=== PATIENT | female | born 2000 | race Caucasian/White ===

== ENCOUNTER 2021-09-18 07:10 | Emergency (ER) | payer OTHER ==
[~2021-09-18] VITALS: Ht 167.7 cm; Wt 70.7 kg
[2021-09-18] MEDS ORDERED: ONDANSETRON 4 MG/2 ML (SDV) Z0FRAN IVP ONE (08:00)
[2021-09-18] MEDS ORDERED: NS IV 1000 ML 1,000 ML IV SCH (08:00)
[2021-09-18] MEDS ORDERED: KETOROLAC 30 MG/ML VIAL IVP ONE (08:00)
--- NOTE | 2021-09-18 08:02 | ED General ---
General Chief Complaint: - Reproductive Stated Complaint: BACK PAIN / FEVER Nursing Triage Note: PT AMB TO [facility] WITH COMPLAINT OF FEVERS, BACK PAIN. STATES SYMPTOMS STARTED THURSDAY. WENT TO [facility] YESTERDAY AND PRESCRIBED ANTIBIOTICS. UNSURE WHAT SHE WAS PRESCRIBED. STATES IS STILL HAVING FEVERS AND PAIN. LAST TOOK IBUPROFEN 0100 AND TYLENOL 0400. Source of Information: Patient Exam Limitations: No Limitations History of Present Illness Date Seen by Provider: Sep 18, 2021 Time Seen by Provider: 07:48 Initial Comments Patient is a 21-year-old female who presents to the emergency department with complaints of fever as high as 103, back pain more right than left, some burning with urination. Patient states that she is generally felt unwell. She is also had nausea and vomiting, inability to hold anything down. She works at [employer] and actually saw one of the providers "flaco". She had a urinalysis performed and was prescribed some antibiotics but had not started them yet. Patient denies upper respiratory complaints is not short of breath does not have a sore throat. She has an IUD. Denies abnormal vaginal bleeding or vaginal discharge. No diarrhea. No rashes, joint pain or swelling. She did take a dose of extra strength Tylenol x2 tablets at 4 AM and took ibuprofen at 1 AM. Still nauseous. Heart rate in the 120s. Looks dehydrated. Looks like she feels poorly. All other review of systems reviewed and negative except as stated Timing/Duration: 3-4 Days, 1 Week Severity: Moderate Associated Systoms: Fever/Chills, Nausea/Vomiting, Other (dysuria back pain) Allergies and Home Medications Allergies Coded Allergies: No Known Drug Allergies (Unverified , 09/18/21) Patient Home Medication List Home Medication List Reviewed: Yes Cephalexin (Cephalexin) 500 Mg Tablet, 500 MG PO TID Prescribed by: BENOIT SESAY on 09/18/21906 Ondansetron (Ondansetron Odt) 4 Mg Tab.rapdis, 4 MG PO Q8H PRN for nausea Prescribed by: BENOIT SESAY on 09/18/21906 Review of Systems Review of Systems Constitutional: chills, diaphoresis, fever, malaise, weakness EENTM: no symptoms reported Respiratory: no symptoms reported Cardiovascular: no symptoms reported Musculoskeletal: back pain (Right flank) Skin: no symptoms reported Psychiatric/Neurological: No Symptoms Reported All Other Systems Reviewed Negative Unless Noted: Yes Past Guauvaf-Nlwhlp-Jsnhfc Hx Patient Social History Tobacco Use?: No Use of E-Cig and/or Vaping dev: No Substance use?: No Alcohol Use?: Yes Alcohol Frequency: Once in a while Immunizations Up To Date First/Initial COVID19 Vaccinat: 2020 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 oz. kg; 25.00 BMI Method: General Appearance: No Apparent Distress, WD/WN Eyes: Bilateral Eye Normal Inspection, Bilateral Eye PERRL, Bilateral Eye EOMI HEENT: PERRL/EOMI, Other (Dry oral mucosa) Neck: Full Range of Motion, Normal Inspection, Non Tender, Supple Respiratory: Lungs Clear, Normal Breath Sounds, No Accessory Muscle Use, No Respiratory Distress Cardiovascular: Regular Rate, Rhythm (130 pulse), Normal Peripheral Pulses Gastrointestinal: Normal Bowel Sounds, Soft, Tenderness (Suprapubic tenderness) Genital/Rectal: Other (deferred) Back: CVA Tenderness (R) Extremity: Normal Inspection, Normal Range of Motion, Non Tender, No Calf Tenderness Neurologic/Psychiatric: Alert, Oriented x3, No Motor/Sensory Deficits, Normal Mood/Affect, men's basketball coach II-XII Norm as Tested Skin: Normal Color, Warm/Dry Progress/Results/Core Measures Suspected Sepsis SIRS Temperature: Pulse: 137 Respiratory Rate: 20 Laboratory Tests 09/18/21 08:13: White Blood Count 10.9 Blood Pressure 134 /74 Mean: 94 Laboratory Tests 09/18/21 08:13: Creatinine 0.86, Platelet Count 270 Results/Orders Lab Results Laboratory Tests Test 09/18/21 07:26 09/18/21 08:13 Range/Units Urine Color YELLOW Urine Clarity CLEAR Urine pH 5.5 5-9 Urine Specific [place] 1.025 H 1.016-1.022 Urine Protein 1+ H NEGATIVE Urine Glucose (UA) NEGATIVE NEGATIVE Urine Ketones NEGATIVE NEGATIVE Urine Nitrite POSITIVE H NEGATIVE Urine Bilirubin NEGATIVE NEGATIVE Urine Urobilinogen 1.0 < = 1.0 MG/DL Urine Leukocyte Esterase 1+ H NEGATIVE Urine RBC (Auto) 1+ H NEGATIVE Urine RBC RARE /HPF Urine WBC 25-50 H /HPF Urine Squamous Epithelial Cells 2-5 /HPF Urine Crystals NONE /LPF Urine Bacteria LARGE H /HPF Urine Casts NONE /LPF Urine Mucus NEGATIVE /LPF Urine Culture Indicated YES White Blood Count 10.9 4.3-11.0 10^3/uL Red Blood Count 4.43 3.80-5.11 10^6/uL Hemoglobin 12.1 11.5-16.0 g/dL Hematocrit 37 35-52 % Mean Corpuscular Volume 83 80-99 fL Mean Corpuscular Hemoglobin 27 25-34 pg Mean Corpuscular Hemoglobin Concent 33 32-36 g/dL Red Cell Distribution Width 13.5 10.0-14.5 % Platelet Count 270 130-400 10^3/uL Mean Platelet Volume 9.4 9.0-12.2 fL Immature Granulocyte % (Auto) 1 % Neutrophils (%) (Auto) 75 42-75 % Lymphocytes (%) (Auto) 9 L 12-44 % Monocytes (%) (Auto) 15 H 0-12 % Eosinophils (%) (Auto) 0 0-10 % Basophils (%) (Auto) 0 0-10 % Neutrophils # (Auto) 8.2 H 1.8-7.8 10^3/uL Lymphocytes # (Auto) 1.0 1.0-4.0 10^3/uL Monocytes # (Auto) 1.6 H 0.0-1.0 10^3/uL Eosinophils # (Auto) 0.0 0.0-0.3 10^3/uL Basophils # (Auto) 0.0 0.0-0.1 10^3/uL Immature Granulocyte # (Auto) 0.1 0.0-0.1 10^3/uL Sodium Level 135 135-145 MMOL/L Potassium Level 3.5 L 3.6-5.0 MMOL/L Chloride Level 100 98-107 MMOL/L Carbon Dioxide Level 21 21-32 MMOL/L Anion Gap 14 5-14 MMOL/L Blood Urea Nitrogen 6 L 7-18 MG/DL Creatinine 0.86 0.60-1.30 MG/DL Estimat Glomerular Filtration Rate 97 BUN/Creatinine Ratio 7 Glucose Level 103 70-105 MG/DL Calcium Level 9.0 8.5-10.1 MG/DL Influenza Type A Antigen NEGATIVE NEGATIVE Influenza Type B Antigen POSITIVE H NEGATIVE My Orders Orders - BENOIT SESAY MD Ed Iv/Invasive Line Start (09/18/21 07:56) Cbc With Automated Diff (09/18/21 07:56) Basic Metabolic Panel (09/18/21 07:56) Ua Culture If Indicated (09/18/21 07:56) Urine Bedside (09/18/21 07:56) Ns Iv 1000 Ml (Sodium Chloride 0.9%) (09/18/21 08:00) Ketorolac Injection (Toradol Injection) (09/18/21 08:00) Ondansetron Injection (Zofran Injectio (09/18/21 08:00) Influenza A & B Antigens (09/18/21 08:13) Urine Culture (09/18/21 07:26) Medications Given in ED Current Medications Medications Dose Ordered Sig/Blair Route Start Time Stop Time Status Last Admin Dose Admin Ketorolac Tromethamine 15 mg ONCE ONCE IVP 09/18/21 08:00 09/18/21 08:01 DC 09/18/21 08:06 15 MG Ondansetron HCl 4 mg ONCE ONCE IVP 09/18/21 08:00 09/18/21 08:01 DC 09/18/21 08:06 4 MG Vital Signs/I&O 09/18/21 07:20 Temp 39.5 Pulse 137 Resp 20 B/P (MAP) 134/74 (94) Pulse Ox 98 O2 Delivery Room Air Capillary Refill : Less Than 3 Seconds Blood Pressure Mean: 94 Progress Note : Time: 09:04 Progress Note Patient reevaluated after fluids, feeling better as far as more "clear headed". She still has a mild headache but declines further headache medications. She has influenza B as well as urinary tract infection. Request that her medications be sent to apothecary. I am going to put her on Keflex for her urinary tract infection and send some Zofran to the pharmacy for her nausea. She is counseled on return precautions. She verbalized understanding. All questions are sought and answered. Departure Impression Primary Impression: Influenza B Additional Impression: Urinary tract infection Qualified Codes: N39.0 - Urinary tract infection, site not specified Disposition: HOME, SELF-CARE Condition: Improved Departure-Patient Inst. Decision time for Depature: 09:05 Referrals: [facility] [place],LOCAL PHYSICIAN (PCP) Primary Care Physician Patient Instructions: Urinary Tract Infection, Adult (DC), Flu, Adult (DC) Add. Discharge Instructions: Recommended fluids to stay well-hydrated. Your urine should be clear. Take [id number] ibuprofen, 3 tablets which is 600 mg every 6 hours with food. You can alternate this with Tylenol as needed for fever and pain. Antibiotics, Keflex 500 mg 3 times a day for the next 5 days. Please come back to the emergency department for any new, concerning or emergent complaints. Scripts Ondansetron (Ondansetron Odt) 4 Mg Tab.rapdis 4 MG PO Q8H PRN for nausea, #15 TAB Prov: BENOIT SESAY MD 09/18/21 Cephalexin (Cephalexin) 500 Mg Tablet 500 MG PO TID for 5 Days, #15 TAB Prov: BENOIT SESAY MD 09/18/21 Copy Copies To 1: TIM KENT KATHRYN M MD Sep 18, 2021 08:02
[2021-09-18 08:19] LABS: BASOPHILS % (AUTO) 0 % (0-10); EOSINOPHILS % (AUTO) 0 % (0-10); HEMATOCRIT 37 % (35-52); HEMOGLOBIN 12.1 g/dL (11.5-16.0); LYMPHOCYTES % (AUTO) 9 % (12-44); MEAN CORPUSCULAR HEMOGLOBIN 27 pg (25-34); MEAN CORPUSCULAR HGB CONC 33 g/dL (32-36); MEAN CORPUSCULAR VOLUME 83 fL (80-99); MEAN PLATELET VOLUME 9.4 fL (9.0-12.2); MONOCYTES # (AUTO) 1.6 10^3/uL (0.0-1.0); MONOCYTES % (AUTO) 15 % (0-12); NEUTROPHILS # (AUTO) 8.2 10^3/uL (1.8-7.8); NEUTROPHILS % (AUTO) 75 % (42-75); PLATELET COUNT 270 10^3/uL (130-400); WHITE BLOOD COUNT 10.9 10^3/uL (4.3-11.0)
[2021-09-18 08:25] LABS: BILIRUBIN,URINE NEGATIVE (NEGATIVE); CLARITY,URINE CLEAR; COLOR,URINE YELLOW; GLUCOSE, URINE (UA) NEGATIVE (NEGATIVE); KETONES,URINE NEGATIVE (NEGATIVE); LEUKOCYTE ESTERASE ,URINE 1+ (NEGATIVE); NITRITE,URINE POSITIVE (NEGATIVE); PH,URINE 5.5 (5-9); PROTEIN,URINE 1+ (NEGATIVE)
[2021-09-18 08:27] LABS: POTASSIUM 3.5 MMOL/L (3.6-5.0)
[2021-09-18 08:32] LABS: CREATININE SERUM 0.86 MG/DL (0.60-1.30)
[2021-09-18 08:58] LABS: BACTERIA,URINE LARGE /HPF; RBC,URINE RARE /HPF; WBC,URINE 25-50 /HPF
[2021-09-18] MEDS ORDERED: CEPH500T PO (09:07)
[2021-09-18] MEDS ORDERED: ONDA4TAB11 PO (09:07)
[2021-09-18 10:00] VITALS: BP 102/66
== END 2021-09-18 10:00 | disposition home or self-care (01) ==
LOC: ER 07:12
DX: J10.1 Influenza due to other identified influenza virus with other respiratory manifestations (principal); N39.0 Urinary tract infection, site not specified
CPT/HCPCS: 36415; 80048; 81000; 84703; 85025; 87077; 87088; 87186; 87804